=== PATIENT | male | born 1990 | race African-American/Black ===

== ENCOUNTER 2016-12-21 11:19 | Emergency (ER) | payer SELFPAY ==
[~2016-12-21] VITALS: Ht 175.3 cm; Wt 67.0 kg
[~2016-12-21 11:19] MED LIST: DICL50 PO; LORT5TAB PO; Z.0.NO CURRENT MEDS
[2016-12-21 11:24] VITALS: BP 138/76; PULSE 56; RESP 18; TEMP 98.1; O2SAT 98
[2016-12-21] MEDS ORDERED: SODIUM CHLOR 0.9% 1000 ML INJ 1,000 ML IV SCH (11:40)
--- NOTE | 2016-12-21 11:43 | PD ---
HPI Chief Complaint: Abdominal Pain Time Seen by Provider: 11:37 Travel History International Travel<30 days: No Contact w/Intl Traveler<30days: No Traveled to known affect area: No History of Present Illness HPI 26-year-old male here with complaint of flulike symptoms. Patient has been ill for the last 3 days with nasal congestion, sore throat, cough, body aches. The last day he's had associated nausea, dry heaves but no vomiting. Mild crampy abdominal discomfort, diffuse, and diarrhea. Multiple sick contacts in family have been ill with similar symptoms. PFSH Past Medical History Asthma: Yes Diminished Hearing: No Respiratory: Yes (asthma) Influenza Vaccination: No ?: Not Past Surgical History Surgical History: No Previous Surgery Social History Alcohol Use: Yes (occ) Tobacco Use: Yes (1 ppd) Substance Use: No Allergies-Medications (Allergen,Severity, Reaction): Coded Allergies: No Known Allergies (Verified , 12/21/16) Reported Meds & Prescriptions Reported Meds & Active Scripts Active No Active Prescriptions or Reported Medications Review of Systems Except as stated in HPI: all other systems reviewed are Neg Physical Exam Narrative GENERAL: Well-appearing male in position in no acute distress SKIN: Warm and dry. HEAD: Normocephalic. EYES: Pupils equal and round. No scleral icterus. No injection or drainage. ENT: No nasal bleeding or discharge. Mucous membranes pink and moist. Posterior pharynx clear without tonsillar erythema or exudate NECK: Supple without nuchal rigidity CARDIOVASCULAR: Regular rate and rhythm. No murmur appreciated. RESPIRATORY: No accessory muscle use. Clear to auscultation. Breath sounds equal bilaterally. GASTROINTESTINAL: Abdomen soft, non-tender, nondistended. MUSCULOSKELETAL: Normal gait NEUROLOGICAL: Awake and alert. Motor grossly within normal limits. Normal speech. PSYCHIATRIC: Appropriate mood and affect; insight and judgment normal. Data Data Last Documented VS Vital Signs Date Time Temp Pulse Resp B/P Pulse Ox O2 Delivery O2 Flow Rate FiO2 12/21/16 12:06 66 18 120/72 98 Room Air 12/21/16 11:24 98.1 Orders Complete Blood Count With Diff (12/21/16 11:40) Comprehensive Metabolic Panel (12/21/16 11:40) Lipase (12/21/16 11:40) Urinalysis - C+S If Indicated (12/21/16 11:40) Iv Access Insert/Monitor (12/21/16 11:40) Ecg Monitoring (12/21/16 11:40) Oximetry (12/21/16 11:40) Ondansetron Inj (Zofran Inj) (12/21/16 11:45) Sodium Chlor 0.9% 1000 Ml Inj (Ns 1000 M (12/21/16 11:40) Sodium Chloride 0.9% Flush (Ns Flush) (12/21/16 11:45) Ketorolac Inj (Toradol Inj) (12/21/16 11:45) Influenzae A/B Antigen (12/21/16 11:40) Labs Laboratory Tests Test 12/21/16 12/21/16 11:51 11:57 Urine Collection Type CLEAN CATCH Urine Color YELLOW Urine Turbidity CLEAR Urine pH 5.5 Urine Specific [place] 1.012 Urine Protein NEG mg/dL Urine Glucose (UA) NEG mg/dL Urine Ketones 40 mg/dL Urine Occult Blood TRACE Urine Nitrite NEG Urine Bilirubin NEGATIVE Urine Leukocyte Esterase NEG Urine RBC 0-3 /hpf Urine WBC 0-2 /hpf Microscopic Urinalysis Comment CULT NOT INDICATED White Blood Count 4.9 TH/MM3 Red Blood Count 5.38 MIL/MM3 Hemoglobin 15.5 GM/DL Hematocrit 46.8 % Mean Corpuscular Volume 87.0 FL Mean Corpuscular Hemoglobin 28.8 PG Mean Corpuscular Hemoglobin 33.1 % Concent Red Cell Distribution Width 13.7 % Platelet Count 211 TH/MM3 Mean Platelet Volume 8.4 FL Neutrophils (%) (Auto) 52.2 % Lymphocytes (%) (Auto) 35.3 % Monocytes (%) (Auto) 10.0 % Eosinophils (%) (Auto) 1.3 % Basophils (%) (Auto) 1.2 % Neutrophils # (Auto) 2.5 TH/MM3 Lymphocytes # (Auto) 1.7 TH/MM3 Monocytes # (Auto) 0.5 TH/MM3 Eosinophils # (Auto) 0.1 TH/MM3 Basophils # (Auto) 0.1 TH/MM3 CBC Comment DIFF FINAL Differential Comment Sodium Level 140 MEQ/L Potassium Level 3.9 MEQ/L Chloride Level 105 MEQ/L Carbon Dioxide Level 24.6 MEQ/L Anion Gap 10 MEQ/L Blood Urea Nitrogen 16 MG/DL Creatinine 1.20 MG/DL Estimat Glomerular Filtration 88 ML/MIN Rate Random Glucose 77 MG/DL Calcium Level 8.7 MG/DL Total Bilirubin 0.6 MG/DL Aspartate Amino Transf 24 U/L (AST/SGOT) Alanine Aminotransferase 19 U/L (ALT/SGPT) Alkaline Phosphatase 68 U/L Total Protein 8.3 GM/DL Albumin 4.1 GM/DL Lipase 80 U/L MDM Medical Decision Making Medical Screen Exam Complete: Yes Emergency Medical Condition: Yes Medical Record Reviewed: Yes Differential Diagnosis 26-year-old male with 3 days of flulike symptoms. Differential includes viral syndrome, influenza, sinusitis, bronchitis, gastroenteritis, UTI, pyelonephritis. Abdominal examination is benign making peritoneal pathology unlikely. Narrative Course Patient placed on monitor, IV established and blood obtained. Given 1 L normal saline bolus, 4 mg Zofran, 30 mg Toradol. CBC, CMP, lipase, urinalysis, influenza were obtained and notable only for slight urinary ketones but normal blood glucose without anion gap and history of a man who is not a diabetic. Patient felt improved after the above and will be discharged to home with antiemetic for symptom control. Diagnosis Primary Impression: Viral syndrome Referrals: [facility] as needed Additional Instructions: Phenergan as needed for nausea, vomiting. Tylenol, ibuprofen as needed for body aches, fevers, chills. Med/Other Pt SpecificInfo: Prescription(s) given Scripts Promethazine (Phenergan)25 Mg Tab25 Mg PO Q6H PRN (Nausea/Vomiting) #10 TAB Ref 0 Prov:Rosana Garzon MD 12/21/16 Disposition: DISCHARGE HOME Condition: Stable Rosana Garzon MD Dec 21, 2016 11:43
[2016-12-21] MEDS ORDERED: ONDANSETRON HCL 4 MG/2 ML VIAL IVP ONE (11:45)
[2016-12-21] MEDS ORDERED: KETOROLAC TROMETHAMINE 30 MG/ML (IVP) VIAL IVP ONE (11:45)
[2016-12-21] MEDS ORDERED: SODIUM CHLORIDE 0.9% FLUSH 5 ML FLUSH IVF PRN (11:45)
[2016-12-21 11:56] VITALS: O2SAT 99
[2016-12-21 12:04] LABS: AUTOMATED NEUTROPHIL # 2.5 TH/MM3 (1.8-7.7); BASOPHIL # 0.1 TH/MM3 (0-0.2); BASOPHIL % 1.2 % (0.0-2.0); EOSINOPHIL # 0.1 TH/MM3 (0-0.4); EOSINOPHIL % 1.3 % (0.0-4.0); HEMATOCRIT 46.8 % (39.0-51.0); HEMO FLAGS DIFF FINAL; LYMPH % 35.3 % (9.0-44.0); LYMPHOCYTE # 1.7 TH/MM3 (1.0-4.8); MEAN CORPUSCULAR HEMOGLOBIN 28.8 PG (27.0-34.0); MEAN CORPUSCULAR HGB CONC 33.1 % (32.0-36.0); NEUT % 52.2 % (16.0-70.0); PLATELET COUNT 211 TH/MM3 (150-450); RED BLOOD COUNT 5.38 MIL/MM3 (4.50-5.90); RED CELL DISTRIBUTION WIDTH 13.7 % (11.6-17.2); WHITE BLOOD COUNT 4.9 TH/MM3 (4.0-11.0)
[2016-12-21 12:06] VITALS: BP 120/72; PULSE 66; RESP 18; O2SAT 98
[2016-12-21 12:06] LABS: BLOOD, URINE TRACE (NEG); GLUCOSE,URINE NEG (NEG); KETONE, URINE 40 mg/dL (NEG); NITRITE,URINE NEG (NEG); PH, URINE 5.5 (5.0-8.5)
[2016-12-21 12:11] LABS: CHLORIDE 105 MEQ/L (98-107); POTASSIUM 3.9 MEQ/L (3.5-5.1); SODIUM (NA) 140 MEQ/L (136-145)
[2016-12-21 12:15] LABS: ANION GAP 10 MEQ/L (5-15); BICARBONATE 24.6 MEQ/L (21.0-32.0); BLOOD UREA NITROGEN 16 MG/DL (7-18)
[2016-12-21 12:17] LABS: METHOD OF COLLECTION CLEAN CATCH; URINE COLOR YELLOW (YELLW/STRAW)
[2016-12-21 12:18] LABS: COMMENT (UR) CULT NOT INDICATED; CULTURE IF INDICATED CULT NOT INDICATED; RBC, URINE 0-3 /hpf (0-3); WBC, URINE 0-2 /hpf (0-5)
[2016-12-21 12:18] LABS: ALT (GPT) 19 U/L (12-78); AST (GOT) 24 U/L (15-37); GLOMERULAR FILTRATION RATE 88 ML/MIN (>89)
[2016-12-21 12:20] LABS: TOTAL BILIRUBIN ADULT 0.6 MG/DL (0.2-1.0)
[2016-12-21 12:21] LABS: ALKALINE PHOSPHATASE 68 U/L (45-117)
[2016-12-21] MEDS ORDERED: PROM25TA5 PO (12:24)
[2016-12-21] MEDS ORDERED: BENZ100 PO (12:30)
--- NOTE | 2016-12-21 18:02 | EKG ---
Date Performed: 12/21/2016 Time Performed: 11:32:54 PTAGE: 26 years EKG: Sinus bradycardia with sinus arrhythmia Normal ECG except for rate NO PREVIOUS TRACING DOCTOR: Joshua Kelly Interpretating Date/Time 12/21/2016 18:01:03
== END 2016-12-21 12:43 | disposition home or self-care (01) ==
LOC: PHED 11:19
DX: B34.9 Viral infection, unspecified (principal); J45.909 Unspecified asthma, uncomplicated; F17.200 Nicotine dependence, unspecified, uncomplicated; R00.1 Bradycardia, unspecified
CPT/HCPCS: 80053; 81001; 83690; 85025; 87804; 93005; 96361; 96374; 96375; 99284; J1885; J2405; J7030

== ENCOUNTER 2017-05-14 16:03 | Emergency (ER) | payer SELFPAY ==
[~2017-05-14 16:03] MED LIST changes: +BENZ100 PO; -DICL50 PO; -LORT5TAB PO; +PROM25TA5 PO; -Z.0.NO CURRENT MEDS
[2017-05-14 16:18] VITALS: BP 113/71; PULSE 64; RESP 20; TEMP 98.3; O2SAT 97
[2017-05-14] MEDS ORDERED: ULTR50TA5 PO (16:54)
[2017-05-14] MEDS ORDERED: CYCL1TAB29 PO (16:54)
--- NOTE | 2017-05-14 16:55 | PD ---
HPI Chief Complaint: Back/ Neck Pain or Injury Time Seen by Provider: 16:50 Travel History International Travel<30 days: No Contact w/Intl Traveler<30days: No Traveled to known affect area: No History of Present Illness HPI This 26-year-old male complaining of low back pain. He's been having the pain for several days. It is a sharp pain in his lower back that is aggravated by being in one position for too long. He does not have any radiation down his legs. He has not had fever or chills. 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 [facility] Past Medical History Medical History: Denies Significant Hx Asthma: Yes Diminished Hearing: No Respiratory: Yes (asthma) Past Surgical History Other Surgery: Yes (nasal) Social History Alcohol Use: No Tobacco Use: No Substance Use: No Allergies-Medications (Allergen,Severity, Reaction): Coded Allergies: No Known Allergies (Verified , 05/14/17) Reported Meds & Prescriptions Reported Meds & Active Scripts Active Review of Systems General / Constitutional: No: Fever, Chills Eyes: No: Diploplia, Blurred Vision HENT: No: Headaches, Vertigo Cardiovascular: No: Chest Pain or Discomfort Respiratory: No: Shortness of Breath, Wheezing Genitourinary: No: Dysuria Musculoskeletal: Positive: Myalgias, Pain Skin: No Rash, No Itching Hematologic/Lymphatic: No: Easy Bruising Physical Exam Narrative GENERAL: Well-developed male. SKIN: Focused skin assessment warm/dry. HEAD: Atraumatic. Normocephalic. EYES: Pupils equal and round. No scleral icterus. No injection or drainage. ENT: No nasal bleeding or discharge. Mucous membranes pink and moist. NECK: Trachea midline. No JVD. CARDIOVASCULAR: Regular rate and rhythm. No murmur appreciated. RESPIRATORY: No accessory muscle use. Clear to auscultation. Breath sounds equal bilaterally. GASTROINTESTINAL: Abdomen soft, non-tender, nondistended. Hepatic and splenic margins not palpable. MUSCULOSKELETAL: No obvious deformities. No clubbing. No cyanosis. No edema. NEUROLOGICAL: Awake and alert. No obvious cranial nerve deficits. Motor grossly within normal limits. Normal speech. Straight leg raising is painful on the left but not on the right. He does resist any movement and appears to be having muscular spasms of the lower back PSYCHIATRIC: Appropriate mood and affect; insight and judgment normal. Data Data Last Documented VS Vital Signs Date Time Temp Pulse Resp B/P Pulse Ox O2 Delivery O2 Flow Rate FiO2 05/14/17 16:18 98.3 64 20 113/71 97 MDM Medical Decision Making Medical Screen Exam Complete: Yes Emergency Medical Condition: Yes Medical Record Reviewed: Yes Differential Diagnosis Differential includes muscle spasm, HNP, back pain Narrative Course She has been having back pain for several days. I don't find any neurologic deficit and there are no red flags for imaging. Will be given prescription for muscle relaxer and pain medication Diagnosis Primary Impression: Musculoskeletal back pain Departure Forms: Tests/Procedures, Work Release Enter return to work date: May 17, 2017 Scripts Tramadol (Ultram)50 Mg Tab50 Mg PO Q4H PRN (PAIN) #20 TAB Ref 0 Prov:Nikita Rosenberg MD 05/14/17 Cyclobenzaprine (Flexeril)10 Mg Tab10 Mg PO TID #60 TAB Ref 0 Prov:Nikita Rosenberg MD 05/14/17 Disposition: 01 DISCHARGE HOME Condition: Stable Nikita Rosenberg MD May 14, 2017 16:55
[2017-05-14] MEDS ORDERED: ORPHENADRINE INJ 60 MG/2 ML AMP IM ONE (17:00)
== END 2017-05-14 17:08 | disposition home or self-care (01) ==
LOC: PHEFT 16:03
DX: M54.5 Low back pain (principal)
CPT/HCPCS: 96372; 99284; J2360

== ENCOUNTER 2018-02-28 17:21 | Emergency (ER) | payer SELFPAY ==
[~2018-02-28] VITALS: Ht 172.7 cm; Wt 73.6 kg
[~2018-02-28 17:21] MED LIST changes: -BENZ100 PO; +CYCL10TA PO; -PROM25TA5 PO; +TRAM50 PO
[2018-02-28 17:29] VITALS: BP 154/96; PULSE 78; RESP 18; TEMP 98; O2SAT 100
[2018-02-28 19:01] LABS: AUTOMATED NEUTROPHIL # 3.8 TH/MM3 (1.8-7.7); BASOPHIL # 0.2 TH/MM3 (0-0.2); BASOPHIL % 2.6 % (0.0-2.0); EOSINOPHIL # 0.2 TH/MM3 (0-0.4); EOSINOPHIL % 2.6 % (0.0-4.0); HEMATOCRIT 46.9 % (39.0-51.0); HEMOGLOBIN 16.1 GM/DL (13.0-17.0); LYMPHOCYTE # 2.2 TH/MM3 (1.0-4.8); MEAN CELL VOLUME 88.8 FL (80.0-100.0); MEAN CORPUSCULAR HEMOGLOBIN 30.5 PG (27.0-34.0); MEAN CORPUSCULAR HGB CONC 34.4 % (32.0-36.0); MEAN PLATELET VOLUME 7.9 FL (7.0-11.0); MONO % 6.5 % (0.0-8.0); MONOCYTE # 0.4 TH/MM3 (0-0.9); NEUT % 56.3 % (16.0-70.0); PLATELET COUNT 207 TH/MM3 (150-450); RED BLOOD COUNT 5.29 MIL/MM3 (4.50-5.90); RED CELL DISTRIBUTION WIDTH 13.1 % (11.6-17.2); WHITE BLOOD COUNT 6.8 TH/MM3 (4.0-11.0)
[2018-02-28 19:13] LABS: CHLORIDE 105 MEQ/L (98-107); SODIUM (NA) 140 MEQ/L (136-145)
[2018-02-28 19:17] LABS: ALBUMIN 4.2 GM/DL (3.4-5.0); BLOOD UREA NITROGEN 14 MG/DL (7-18); GLUCOSE,RANDOM 83 MG/DL (74-106)
[2018-02-28 19:20] LABS: ALT (GPT) 12 U/L (12-78); AST (GOT) 14 U/L (15-37); GLOMERULAR FILTRATION RATE 108 ML/MIN (>89)
[2018-02-28 19:22] LABS: TOTAL BILIRUBIN ADULT 0.5 MG/DL (0.2-1.0); TOTAL PROTEIN 8.3 GM/DL (6.4-8.2)
[2018-02-28 19:23] LABS: ALKALINE PHOSPHATASE 64 U/L (45-117)
[2018-02-28 19:25] LABS: BILIRUBIN, URINE NEG (NEG); BLOOD, URINE NEG (NEG); GLUCOSE,URINE NEG (NEG); KETONE, URINE NEG (NEG); NITRITE,URINE NEG (NEG); PH, URINE 5.5 (5.0-8.5); URINE COLOR YELLOW (YELLW/STRAW); URINE LEUKOCYTE ESTERASE NEG (NEG)
[2018-02-28 19:39] LABS: SQUAMOUS EPITHELIAL CELL URINE 0-5 /hpf (0-5); WBC, URINE 0-2 /hpf (0-5)
--- NOTE | 2018-02-28 19:39 | PD ---
HPI Chief Complaint: Abdominal Pain Time Seen by Provider: 19:31 Travel History International Travel<30 days: No Contact w/Intl Traveler<30days: No Traveled to known affect area: No History of Present Illness HPI 27-year-old male presents to the emergency department by private transportation for complaint of severe left lower quadrant abdominal pain with multiple episodes of nausea vomiting and diarrhea since 10 AM this morning. Patient states he awakened feeling fairly well then started to feel a little bit ill and that he was hungry so had fish sandwich from a local fast food restaurant and subsequently started developing multiple episodes of vomiting and diarrhea with persistent nausea and developing abdominal pain which is primarily localized to the left lower quadrant. Patient denies referred pain to the testicle or groin. No report of flank pain. Patient denies any chronic medical conditions except for occasional asthma which has not acted up recently. She denies fever chills. No chest pain or shortness of breath. Patient rates his abdominal pain 6/10 intensity is worsened by movement. Patient has had no hematemesis coffee-ground emesis melena hematochezia has noted some bilious emesis. Patient denies any urinary symptoms. Patient denies any chronic medication use or prescription medication use. Patient is taken no medications. Patient denies alcohol use tobacco use or substance use. PFSH Past Medical History Narrative Medical Asthma, nasal surgery; no tobacco use; nursing notes reviewed Asthma: Yes Diminished Hearing: No Respiratory: Yes (asthma) Influenza Vaccination: Yes Past Surgical History Surgical History: No Previous Surgery Other Surgery: Yes (nasal) Social History Alcohol Use: No Tobacco Use: No Substance Use: No Allergies-Medications (Allergen,Severity, Reaction): Coded Allergies: No Known Allergies (Verified Adverse Reaction, Unknown, 02/28/18) Reported Meds & Prescriptions Reported Meds & Active Scripts Active No Active Prescriptions or Reported Medications Review of Systems Except as stated in HPI: all other systems reviewed are Neg General / Constitutional: No: Fever, Chills HENT: No: Congestion Cardiovascular: No: Chest Pain or Discomfort Respiratory: No: Shortness of Breath Gastrointestinal: Positive: Nausea, Vomiting, Diarrhea, Abdominal Pain, No: Hematemesis, Hematochezia Genitourinary: No: Dysuria, Decreased Urinary Output Musculoskeletal: No: Myalgias, Arthralgias Skin: No Rash Neurologic: No: Weakness, Dizziness, Syncope Psychiatric: No: Anxiety Hematologic/Lymphatic: No: Lymph Node Enlargement Physical Exam Narrative GENERAL: Well-developed well-nourished male no acute distress no respiratory distress SKIN: Warm and dry. HEAD: Normocephalic. EYES: No scleral icterus. No injection or drainage. NECK: Supple, trachea midline. No JVD or lymphadenopathy. CARDIOVASCULAR: Regular rate and rhythm without murmurs, gallops, or rubs. RESPIRATORY: Breath sounds equal bilaterally. No accessory muscle use. GASTROINTESTINAL: Abdomen soft, reproducible left lower quadrant tenderness to palpation with voluntary guarding no rebound, nondistended. MUSCULOSKELETAL: No cyanosis, or edema. BACK: Nontender without obvious deformity. No CVA tenderness. Data Data Last Documented VS Vital Signs Date Time Temp Pulse Resp B/P (MAP) Pulse Ox O2 Delivery O2 Flow Rate FiO2 02/28/18 20:17 74 16 122/84 (97) 100 Room Air 02/28/18 17:29 98.0 Orders Orders Complete Blood Count With Diff (02/28/18 18:39) Comprehensive Metabolic Panel (02/28/18 18:39) Urinalysis - C+S If Indicated (02/28/18 18:39) Iv Access Insert/Monitor (02/28/18 18:39) Oxygen Administration (02/28/18 18:39) Oximetry (02/28/18 18:39) Lipase (02/28/18 18:39) Sodium Chlor 0.9% 1000 Ml Inj (Ns 1000 M (02/28/18 19:45) Ondansetron Inj (Zofran Inj) (02/28/18 19:45) Ketorolac Inj (Toradol Inj) (02/28/18 19:45) Ct Abd/Pel W Iv Contrast(Rout) (02/28/18 ) Iohexol 350 Inj (Omnipaque 350 Inj) (02/28/18 20:35) Labs Laboratory Tests Test 02/28/18 18:50 02/28/18 19:15 White Blood Count 6.8 TH/MM3 Red Blood Count 5.29 MIL/MM3 Hemoglobin 16.1 GM/DL Hematocrit 46.9 % Mean Corpuscular Volume 88.8 FL Mean Corpuscular Hemoglobin 30.5 PG Mean Corpuscular Hemoglobin Concent 34.4 % Red Cell Distribution Width 13.1 % Platelet Count 207 TH/MM3 Mean Platelet Volume 7.9 FL Neutrophils (%) (Auto) 56.3 % Lymphocytes (%) (Auto) 32.0 % Monocytes (%) (Auto) 6.5 % Eosinophils (%) (Auto) 2.6 % Basophils (%) (Auto) 2.6 % Neutrophils # (Auto) 3.8 TH/MM3 Lymphocytes # (Auto) 2.2 TH/MM3 Monocytes # (Auto) 0.4 TH/MM3 Eosinophils # (Auto) 0.2 TH/MM3 Basophils # (Auto) 0.2 TH/MM3 CBC Comment DIFF FINAL Differential Comment Blood Urea Nitrogen 14 MG/DL Creatinine 1.00 MG/DL Random Glucose 83 MG/DL Total Protein 8.3 GM/DL Albumin 4.2 GM/DL Calcium Level 9.0 MG/DL Alkaline Phosphatase 64 U/L Aspartate Amino Transf (AST/SGOT) 14 U/L Alanine Aminotransferase (ALT/SGPT) 12 U/L Total Bilirubin 0.5 MG/DL Sodium Level 140 MEQ/L Potassium Level 3.8 MEQ/L Chloride Level 105 MEQ/L Carbon Dioxide Level 28.0 MEQ/L Anion Gap 7 MEQ/L Estimat Glomerular Filtration Rate 108 ML/MIN Lipase 153 U/L Urine Collection Type CLEAN CATCH Urine Color YELLOW Urine Turbidity CLEAR Urine pH 5.5 Urine Specific [place] 1.020 Urine Protein NEG mg/dL Urine Glucose (UA) NEG mg/dL Urine Ketones NEG mg/dL Urine Occult Blood NEG Urine Nitrite NEG Urine Bilirubin NEG Urine Urobilinogen 0.2 MG/DL Urine Leukocyte Esterase NEG Urine WBC 0-2 /hpf Urine Squamous Epithelial Cells 0-5 /hpf Microscopic Urinalysis Comment CULT NOT INDICATED MDM Medical Decision Making Medical Screen Exam Complete: Yes Emergency Medical Condition: Yes Medical Record Reviewed: Yes Interpretation(s) Last Impressions Abdomen/Pelvis CT 02/28/18 0000 Signed Impressions: Service Date/Time: Wednesday, February 28, 2018 20:01 - CONCLUSION: Mild fatty infiltration of the liver. Otherwise negative CT of the abdomen and pelvis. Karan Velásquez MD CBC & BMP Diagram 02/28/18 18:50 Total Protein 8.3 H, Albumin 4.2, Calcium Level 9.0, Alkaline Phosphatase 64, Aspartate Amino Transf (AST/SGOT) 14 L, Alanine Aminotransferase (ALT/SGPT) 12, Total Bilirubin 0.5 Vital Signs Date Time Temp Pulse Resp B/P (MAP) Pulse Ox O2 Delivery O2 Flow Rate FiO2 02/28/18 20:17 74 16 122/84 (97) 100 Room Air 02/28/18 17:29 98.0 78 18 154/96 (115) 100 Differential Diagnosis Food poisoning, gastroenteritis, colitis, diverticulitis, viscus perforation, renal colic, UTI, epididymitis Narrative Course IV access obtained specimens collected and sent for resulting patient administered bolus of normal saline along with Zofran 4 mg IV and Toradol 30 mg IV; CT imaging ordered Lab values found to be in normal range CT abdomen pelvis reveals no acute abnormality It is 9:12 PM and patient stable for outpatient management Diagnosis Primary Impression: Gastroenteritis Referrals: Primary Care Physician call for appointment Patient Instructions: General Instructions Med/Other Pt SpecificInfo: Prescription(s) given Scripts Ondansetron Odt (Zofran Odt) 4 Mg Tab 4 MG SL Q6HR Y for Nausea/Vomiting, #10 TAB 0 Refills Prov: Yanelis Hodges MD 02/28/18 Disposition: 01 DISCHARGE HOME Condition: Stable Yanelis Hodges MD Feb 28, 2018 19:39
[2018-02-28] MEDS ORDERED: KETOROLAC TROMETHAMINE 30 MG/ML (IVP) VIAL IV PUSH ONE (19:45)
[2018-02-28] MEDS ORDERED: SODIUM CHLOR 0.9% 1000 ML INJ 1,000 ML IV ONE (19:45)
[2018-02-28] MEDS ORDERED: ONDANSETRON HCL 4 MG/2 ML VIAL IV PUSH ONE (19:45)
[2018-02-28 20:17] VITALS: BP 122/84; PULSE 74; RESP 16; O2SAT 100
--- NOTE | 2018-02-28 20:32 | RADRPT ---
EXAM DATE/TIME: 02/28/2018 20:01 [facility] COMPARISON: No previous studies available for comparison. INDICATIONS : Left lower quadrant abdominal pain. Nausea, vomiting and diarrhea. IV CONTRAST: 100 cc Omnipaque 350 (iohexol) IV ORAL CONTRAST: No oral contrast ingested. RADIATION DOSE: 7.23 CTDIvol (mGy) MEDICAL HISTORY : None SURGICAL HISTORY : None. ENCOUNTER: Initial ACUITY: 1 day PAIN SCALE: 5/10 LOCATION: Left lower quadrant TECHNIQUE: Volumetric scanning of the abdomen and pelvis was performed. Using automated exposure control and ad justment of the mA and/or kV according to patient size, radiation dose was kept as low as reasonably achievable to obtain optimal diagnostic quality images. DICOM format image data is available electro nically for review and comparison. FINDINGS: LOWER LUNGS: The visualized lower lungs are clear. LIVER: Homogeneous fatty density without lesion. There is no dilation of the biliary tree. No calcified ga llstones. SPLEEN: Normal size without lesion. PANCREAS: Within normal limits. KIDNEYS: Normal in size and shape. There is no mass, stone or hydronephrosis. ADRENAL GLANDS: Within normal limits. VASCULAR: There is no aortic aneurysm. BOWEL/MESENTERY: The stomach, small bowel, and colon demonstrate no acute abnormality. There is no free intraperitone al air or fluid. The appendix well-visualized, normal. ABDOMINAL WALL: Within normal limits. RETROPERITONEUM: There is no lymphadenopathy. BLADDER: No wall thickening or mass. REPRODUCTIVE: Within normal limits. INGUINAL: There is no lymphadenopathy or hernia. MUSCULOSKELETAL: Within normal limits for patient age. CONCLUSION: Mild fatty infiltration of the liver. Otherwise negative CT of the abdomen and pelvis. Karan Velásquez MD on February 28, 2018 at 20:28 Board Certified Radiologist. This report was verified electronically.
[2018-02-28] MEDS ORDERED: IOHEXOL 350 MG/ML 10 ML VIAL (for RAD DIAG) IVCONTRAST ONE (20:35)
[2018-02-28] MEDS ORDERED: ZOFR4TAB3 SL (21:14)
[2018-02-28 21:39] VITALS: BP 125/75
== END 2018-02-28 21:41 | disposition home or self-care (01) ==
LOC: PHED 17:21
DX: K52.9 Noninfective gastroenteritis and colitis, unspecified (principal); K76.0 Fatty (change of) liver, not elsewhere classified; J45.909 Unspecified asthma, uncomplicated
CPT/HCPCS: 74177; 80053; 81001; 83690; 85025; 96361; 96374; 96375; 99284; J1885; J2405; J7030; Q9967